=== PATIENT | male | born 1940 | race Caucasian/White ===

== ENCOUNTER 2016-11-14 10:07 | Emergency (ER) | payer MEDICARE ==
[~2016-11-14] VITALS: Ht 175.3 cm; Wt 57.0 kg
[2016-11-14 10:43] LABS: HEMOGLOBIN 12.9 g/dl (14.0-18.0); IMMATURE GRANULOCYTES 0.9 % (0.0-1.0); MEAN CELL VOLUME 95.1 fL CALC (80.0-100.0); MEAN CORPUSCULAR HGB 31.5 pG CALC (26.0-32.0); MEAN CORPUSCULAR HGB CONC 33.1 g/L CALC (32.0-36.0); NEUT# 7.18 thou/uL (1.82-7.42); RED BLOOD COUNT 4.1 mill/uL (4.70-6.10); RED CELL DISTRI WIDTH 13.6 % (11.5-15.5)
[2016-11-14 10:52] LABS: ALBUMIN 3.8 g/dL (3.2-5.0); BILIRUBIN, TOTAL 1.7 mg/dL (0.0-1.4); CALCIUM 9.5 mg/dL (8.4-10.2); CREATININE 1.6 mg/dL (0.7-1.3); POTASSIUM 4.4 mmol/l (3.5-5.1); TOTAL PROTEIN 8.3 g/dL (6.3-8.2)
[2016-11-14 12:37] LABS: URINE BLOOD DIPSTICK LARGE (NEGATIVE); URINE CLARITY SLIGHT CLOUDY; URINE COLOR YELLOW; URINE GLUCOSE - DIPSTICK NEGATIVE (NEGATIVE); URINE KETONE NEGATIVE (NEGATIVE); URINE LEUK ESTERASE NEGATIVE (NEGATIVE); URINE NITRITE - DIPSTICK NEGATIVE (Negative); URINE PH 5.5 (4.5-8.0); URINE PROTEIN - DIPSTICK 100 mg/dL (NEG-TRACE); URINE SPECIFIC GRAVITY 1.025; URINE UROBILINOGEN - DIPSTICK 0.2 E.U./dL (0.2)
[2016-11-14 12:42] LABS: URINE BILIRUBIN - DIPSTICK NEGATIVE (NEGATIVE)
[2016-11-14 12:44] LABS: URINE MUCUS MODERATE hpf (NONE-FEW); URINE RBC TNTC RBC/hpf (0-5); URINE SQUAMOUS EPITHELIAL CELL FEW EPI/hpf (0-FEW)
[2016-11-14 12:46] VITALS: BP 88/59
== END 2016-11-14 12:46 | disposition short-term general hospital (02) ==
LOC: ED 10:07
PROVIDERS: Emergency Medicine
PROC: 0T9B70Z Drainage of Bladder with Drainage Device, Via Natural or Artificial Opening (ICD-10-PCS; principal; 2016-11-14)
PROC: 0BH17EZ Insertion of Endotracheal Airway into Trachea, Via Natural or Artificial Opening (ICD-10-PCS; 2016-11-14)
DX: I26.09 Other pulmonary embolism with acute cor pulmonale (principal); R06.02 Shortness of breath; E78.5 Hyperlipidemia, unspecified; R94.31 Abnormal electrocardiogram [ECG] [EKG]; R09.02 Hypoxemia
CPT/HCPCS: J2060; J2997; Q9967

== ENCOUNTER 2016-12-14 16:09 | Emergency (ER) | payer MEDICARE ==
[~2016-12-14] VITALS: Ht 170.2 cm; Wt 51.8 kg
[2016-12-14] MEDS ORDERED: WARFARIN2 MG PO (16:25)
[2016-12-14] MEDS ORDERED: LISINOPRIL20 MG PO (16:25)
[2016-12-14] MEDS ORDERED: CETIRIZINE10 MG PO (16:25)
[2016-12-14] MEDS ORDERED: FLONASE AL50 MCG/AC1 NAB (16:26)
[2016-12-14] MEDS ORDERED: PRAVASTATIN20 MG PO (16:26)
[2016-12-14 17:02] LABS: HEMATOCRIT 32.8 % (39.0-50.0); HEMOGLOBIN 10.9 g/dl (14.0-18.0); IMMATURE GRANULOCYTES 0.2 % (0.0-1.0); MEAN CELL VOLUME 96.8 fL CALC (80.0-100.0); MEAN CORPUSCULAR HGB 32.2 pG CALC (26.0-32.0); MEAN CORPUSCULAR HGB CONC 33.2 g/L CALC (32.0-36.0); NEUT# 5.14 thou/uL (1.82-7.42); RED BLOOD COUNT 3.39 mill/uL (4.70-6.10); RED CELL DISTRI WIDTH 17.4 % (11.5-15.5)
[2016-12-14 17:07] LABS: INTERNATIONAL NORMALIZED RATIO 1.1 RATIO (0.7-1.3); PROTHROMBIN TIME 12.3 SECONDS (9.0-12.5)
[2016-12-14 17:13] LABS: ALBUMIN 4.3 g/dL (3.2-5.0); ALKALINE PHOSPHATASE 71 u/l (38-126); ANION GAP 16 (6-22 (CALC)); BILIRUBIN, TOTAL 0.9 mg/dL (0.0-1.4); BUN 15 mg/dL (8-23); BUN/CREATININE RATIO 16 (12-20 (CALC)); CALCIUM 9.4 mg/dL (8.4-10.2); CARBON DIOXIDE 24 mmol/l (22-30); CHLORIDE 97 mmol/l (95-108); CREATININE 0.9 mg/dL (0.7-1.3); GFR > 60 ML/MIN (>=60 (CALC)); GFR FOR AFR.AMER. > 60 ML/MIN (>=60 (CALC)); GLUCOSE 91 mg/dL (82-115); POTASSIUM 4.8 mmol/l (3.5-5.1); SGOT/AST 41 u/l (19-48); SGPT/ALT 29 u/l (11-66); SODIUM 132 mmol/l (137-146); TOTAL PROTEIN 8.4 g/dL (6.3-8.2)
[2016-12-14] MEDS ORDERED: WARFARIN5 MG PO (17:32)
[2016-12-14 17:50] LABS: URINE BILIRUBIN - DIPSTICK NEGATIVE (NEGATIVE); URINE BLOOD DIPSTICK NEGATIVE (NEGATIVE); URINE CLARITY CLEAR; URINE COLOR YELLOW; URINE GLUCOSE - DIPSTICK NEGATIVE (NEGATIVE); URINE KETONE NEGATIVE (NEGATIVE); URINE LEUK ESTERASE NEGATIVE (Negative); URINE NITRITE - DIPSTICK NEGATIVE (Negative); URINE PROTEIN - DIPSTICK NEGATIVE (NEG-TRACE); URINE SPECIFIC GRAVITY 1.015; URINE UROBILINOGEN - DIPSTICK 0.2 E.U./dL (0.2)
[2016-12-14 18:44] VITALS: BP 149/74
== END 2016-12-14 19:01 | disposition home or self-care (01) ==
LOC: ED 16:09
PROVIDERS: Emergency Medicine
DX: M79.604 Pain in right leg (principal); M79.89 Other specified soft tissue disorders; E78.5 Hyperlipidemia, unspecified; Z86.711 Personal history of pulmonary embolism; Z86.718 Personal history of other venous thrombosis and embolism; Z79.01 Long term (current) use of anticoagulants

== ENCOUNTER 2018-08-30 12:53 | Emergency (ER) | payer MEDICARE ==
[~2018-08-30] VITALS: Ht 170.2 cm; Wt 50.0 kg
[~2018-08-30 12:53] MED LIST: CETIRIZINE10 MG PO; FLONASE AL50 MCG/AC1 NAB; LISINOPRIL20 MG PO; PRAVASTATIN20 MG PO; WARFARIN2 MG PO; WARFARIN5 MG PO
[2018-08-30] MEDS ORDERED: XARELTO10 MG PO (13:02)
[2018-08-30] MEDS ORDERED: AUGMENTIN875TAB PO (14:54)
[2018-08-30 14:56] VITALS: BP 145/68
== END 2018-08-30 15:00 | disposition home or self-care (01) ==
LOC: ED 12:53
DX: S80.871A Other superficial bite, right lower leg, initial encounter (principal); W54.0XXA Bitten by dog, initial encounter; Y93.01 Activity, walking, marching and hiking; Y92.414 Local residential or business street as the place of occurrence of the external cause

== ENCOUNTER 2021-02-19 14:59 | Inpatient (IN) | payer MEDICARE ==
[~2021-02-19] VITALS: Ht 170.2 cm; Wt 52.0 kg
[~2021-02-19 14:59] MED LIST changes: +AUGMENTIN875TAB PO; +XARELTO10 MG PO
--- NOTE | 2021-02-19 15:35 | NUR ---
LWOBS FROM WAITING ROOM WITHOUT BEING SEEN OR SPEAKING TO ANY STAFF MEMBER UNABLE TO ATTEMPT TO TALK WITH PT REGARDING STAYING FOR CARE.
[2021-02-19 18:19] LABS: HEMATOCRIT 31.4 % (39.0-50.0); HEMOGLOBIN 10.6 g/dl (14.0-18.0); IMMATURE GRANULOCYTES 0.8 % (0.0-5.0); MEAN CELL VOLUME 98.4 fL CALC (80.0-100.0); MEAN CORPUSCULAR HGB 33.2 pG CALC (26.0-32.0); MEAN CORPUSCULAR HGB CONC 33.8 g/dL CAL (32.0-36.0); NEUT# 12.95 thou/uL (1.82-7.42); RED BLOOD COUNT 3.19 mill/uL (4.70-6.10); RED CELL DISTRI WIDTH 12.9 % (11.5-15.5)
[2021-02-19 18:25] LABS: ALBUMIN 4.1 g/dL (3.2-5.0); BILIRUBIN, TOTAL 1.7 mg/dL (0.0-1.4); CREATININE 2.3 mg/dL (0.7-1.3); MAGNESIUM 1.7 mg/dL (1.6-2.3); POTASSIUM 5.3 mmol/l (3.5-5.1); TOTAL PROTEIN 7.7 g/dL (6.3-8.2)
--- NOTE | 2021-02-19 19:40 | NUR ---
REPORT TO NASIMA RAE
[2021-02-19 19:45] VITALS: BP 129/63
--- NOTE | 2021-02-19 20:10 | NUR ---
PT RESTING IN BED. NO DISTRESS. ORIENTED TO PERSON AND PLACE. STATES MONTH SEPTEMBER AND YEAR 1959. STATES PRESIDENT IS EMILYKINGSLEY. VSS.
[2021-02-19 20:45] VITALS: BP 131/63
[2021-02-19 21:45] VITALS: BP 124/65
--- NOTE | 2021-02-19 22:00 | NUR ---
PT AMBULATE TO BR WITHOUT DIFFICULTY. FORMED BM NOTED.
--- NOTE | 2021-02-19 23:17 | NUR ---
PATIENT AGREES WITH PLAN FOR ADMIT
[2021-02-19 23:40] VITALS: BP 133/73
--- NOTE | 2021-02-19 23:40 | NUR ---
PT ARRIVED TO MED SURG UNIT VIA WC ACCOMPANIED BY ED NURSE. PT APPEARS TO BE STABLE AT THIS TIME. SELF AMBULATED WITH STANDBY ASSISTANCE. PT LOC TO SELF AND LOCATION ONLY. ORIENTED TO ROOM, CALL LIGHT, TV, BED. V/S ASSESSED AND PT ORIENTED TO FALL PRECAUTIONS AND AGREED TO CALL IF HE NEEDS TO AMBULATE. BED ALARM HAS BEEN PLACED ON FOR PRECAUTIONARY MEASURES.
--- NOTE | 2021-02-19 23:45 | NUR ---
PATIENT TRANSPORTED TO FLOOR VIA WHEELCHAIR BY THIS RN
--- NOTE | 2021-02-20 00:15 | NUR ---
ASSESSMENT HAS BEEN COMPLETED AND IVF ADMINISTERED TO SITE IN RAC/SITE APPEARS HEALTHY. PT APPEARS PLEASANTLY CONFUSED AT THIS TIME. HE IS ABLE TO TELL ME NAME, , THAT HE IS IN THE HOSPITAL. WHEN ASKED WHAT BROUGHT HIM TO THE HOSPITAL AND WHAT HAPPENED TODAY, HE REPLIED "I HAD TOO BECAUSE MY LEGS HAVE JUST NOT BEEN WORKING REAL GOOD AND IT'S JUST GETTIN WORSE AND WORSE." ADMISSION QUESTIONS WERE ATTEMPTED AND PT RESPONDED TO MEDICAL HISTORY QUESTIONS WITH PAST CAREER EXPERIENCES, HE WAS UNABLE TO ANSWER APPROPRIATELY. DENIES AND DISTRESSES/PAIN/N/V AND REPORTS THAT HE HAD BM JUST PRIOR TO COMING TO MED SURG UNIT. I PROVIDED COFFEE AND HE DENIED ANY OTHER DRINK OR SNACK. ICEWATER AT BEDSIDE. I ORIENTED HIM TO THE BED AND CALL LIGHT REINFORCEMENT. BED ALARM IS ON FOR SAFETY PRECAUTIONS.
[2021-02-20 00:47] LABS: PROTHROMBIN TIME 10.8 SECONDS (9.0-12.5)
--- NOTE | 2021-02-20 02:00 | NUR ---
PT WALKED OUT INTO HALLWAY ASKING FOR THE RESTROOM. WE REORIENTED PT TO HIS ROOM/RESTROOM LOCATION ASSISTING HIM STANDBY ASSISTANCE ONLY. BED ALARM DID NOT SOUND, BED HAD FAULTY ALARM SETTING, EXCHANGED AT THIS TIME AND CONFIRMED BED ALARM IS WORKING. PT DENIED ANY OTHER NEEDS OF ASSISTANCE, LEFT IN BED W/ALARM SET.
[2021-02-20 03:47] VITALS: BP 117/74
[2021-02-20 05:40] LABS: HEMATOCRIT 29.2 % (39.0-50.0); HEMOGLOBIN 9.8 g/dl (14.0-18.0); MEAN CELL VOLUME 99.3 fL CALC (80.0-100.0); MEAN CORPUSCULAR HGB 33.3 pG CALC (26.0-32.0); MEAN CORPUSCULAR HGB CONC 33.6 g/dL CAL (32.0-36.0); RED BLOOD COUNT 2.94 mill/uL (4.70-6.10); RED CELL DISTRI WIDTH 12.9 % (11.5-15.5)
[2021-02-20 05:55] LABS: POTASSIUM 4.7 mmol/l (3.5-5.1)
--- NOTE | 2021-02-20 06:05 | NUR ---
PT IS SLEEPING, NO S/O DISTRESS NOTED. CALL LIGHT AT BEDSIDE. BED ALARM IS ON.
--- NOTE | 2021-02-20 07:00 | NUR ---
SHIFT REPORT, AWAKE AND ALERT, ORIENTED TO PERSON ONLY, DENIES PAIN, IVF INFUSING, BED ALARM ON AND PT JUST GETTING OUT OF BED TO BR, GAIT UNSTEADY, REMINDED TO USE CALL GUEVARA.
--- NOTE | 2021-02-20 07:00 | NUR ---
SHIFT REPORT, PT AWAKE AND ALERT TO SELF AND PERSON, GAVE CORRECT INFO FOR , PLEASANTLY CONFUSED, DENIES DISCOMFORT, IVF INFUSING, TELE MONITOR IN PLACE, CALL GUEVARA IN REACH AND BED LOCKED IN LOWEST POSITION WITH ACTIVATED BED ALARM.
[2021-02-20 08:05] VITALS: BP 138/73
[2021-02-20 11:49] LABS: URINE BILIRUBIN - DIPSTICK NEGATIVE (NEGATIVE); URINE BLOOD DIPSTICK TRACE-LYSED (NEGATIVE); URINE CLARITY CLEAR; URINE COLOR YELLOW; URINE GLUCOSE - DIPSTICK NEGATIVE (NEGATIVE); URINE KETONE NEGATIVE (NEGATIVE); URINE LEUK ESTERASE NEGATIVE (Negative); URINE NITRITE - DIPSTICK NEGATIVE (Negative); URINE PH 5.5 (4.5-8.0); URINE PROTEIN - DIPSTICK NEGATIVE (NEG-TRACE); URINE UROBILINOGEN - DIPSTICK 0.2 E.U./dL (0.2)
[2021-02-20 11:56] VITALS: BP 147/75
--- NOTE | 2021-02-20 12:00 | NUR ---
EMACIATED, EATS RAVENOUSLY BUT EXPRESSES APPRECIATION FOR MEALS, FORGETS TO CALL FOR ASSISTANCE TO BR BUT STAFF IS ALERTED BY ALARM, WILL CONTINUE TO MONITOR
--- NOTE | 2021-02-20 13:21 | NUR ---
NO MED REC COMPLETED. CALLED PT PREFERRED PHARMACY [facility], PT HAS NOT FILLED ANYTHING WITH THEM RECENTLY. NEXT OF KIN PHONE NUMBER IS OUT OF SERVICE. MARKED MED REC UNOBTAINABLE, CALLED [facility] LOOKING FOR PTS NURSE JUN, WILL ASK HER TO SPEAK WITH PT TO FIND OUT WHO TO CONTACT TO OBTAIN MED LIST
--- NOTE | 2021-02-20 16:00 | NUR ---
PT REPORTED HE IS BUYING HOUSE FROM SOMEONE WHO GAVE ONE COHN IN THE BEGINNING THEN THE COHN SIGNIFICANTLY WENT UP TO THE POINT HE CAN HARDLY AFFORD THE WEEKLY PAYMENTS. HE DOES APPEAR TO HAVE SOME MEMORY IMPAIRMENT BUT HIS REPORT NEEDS TO BE INVESTIGATED, CM WILL BE NOTIFIED.
[2021-02-20] MEDS ORDERED: NORVASC5 M1 PO (16:32)
[2021-02-20] MEDS ORDERED: ELIQUIS2.5 MG PO (16:32)
--- NOTE | 2021-02-20 17:57 | NUR ---
ED JUST REPORTED 20SECONDS V-TACH, ON OBSERVATION PT HAD GOTTEN OOB FOR BLADDER ELIMINATION THEN SAT ON EDGE OF BED FOR MEAL, NO REPORTS OF DISCOMFORT, VS ; BP = 136/68, HR = 76, O2 = 99%ON RA. WILL CONTINUE TO MONITOR. KYLER (NUZHAT) NOTIFIED, SAID WILL GIVE 2GM MAGNESIUM AND MONITOR OVERNIGHT. TRAVELING PLANT OPERATOR REPORTS PT IS BACK IN SINUS RHYTHM WITH RATE 78.
[2021-02-20 19:26] VITALS: BP 132/69
--- NOTE | 2021-02-20 20:23 | NUR ---
PT MEDICATED W/MAGNESIUM PROVIDED BY HEALTH PROMOTER AT THIS TIME. PT AWAKE AND TALKATIVE. PLEASANTLY CONFUSED OF CIRCUMSTANCES, BUT AWARE HE IS IN THE HOSPITAL AND LOC TO SELF.
[2021-02-20 23:00] VITALS: BP 123/64
--- NOTE | 2021-02-20 23:05 | NUR ---
V/S ASSESSED STABLE AT THIS TIME. AND PT MEDICATED WITH HEP SHOT. TOLERATED WELL. I ENCOURAGED SNACK/FOOD/DRINK, REFUSED.
--- NOTE | 2021-02-21 01:51 | NUR ---
PT IVF REPLENISHED AT THIS TIME. ASSISTED HIM TO BEDSIDE TO USE URINAL. 200CC OF DARK YELLOW URINE OUTPUT AT THIS TIME.
[2021-02-21 04:00] VITALS: BP 128/72
[2021-02-21 05:12] LABS: HEMATOCRIT 29.5 % (39.0-50.0); HEMOGLOBIN 9.9 g/dl (14.0-18.0); MEAN CORPUSCULAR HGB 33.6 pG CALC (26.0-32.0); MEAN CORPUSCULAR HGB CONC 33.6 g/dL CAL (32.0-36.0); RED BLOOD COUNT 2.95 mill/uL (4.70-6.10); RED CELL DISTRI WIDTH 12.8 % (11.5-15.5)
[2021-02-21 05:25] LABS: ANION GAP 13 (6-22 (CALC)); BUN 30 mg/dL (8-23); BUN/CREATININE RATIO 26 (12-20 (CALC)); CARBON DIOXIDE 23 mmol/l (22-30); CHLORIDE 99 mmol/l (95-108); CREATININE 1.1 mg/dL (0.7-1.3); GFR > 60 ML/MIN (>=60 (CALC)); GFR FOR AFR.AMER. > 60 ML/MIN (>=60 (CALC)); POTASSIUM 4.1 mmol/l (3.5-5.1); SODIUM 131 mmol/l (137-146)
[2021-02-21 05:29] LABS: MAGNESIUM 2.3 mg/dL (1.6-2.3)
--- NOTE | 2021-02-21 05:35 | NUR ---
PT IS SLEEPING, NO S/O DISTRESSES AT THIS TIME. BED ALARM IS ON.
--- NOTE | 2021-02-21 06:22 | NUR ---
PT MEDICATED ORDERS PROVIDE. HE MENTIONED THAT HE THINKS "THE PAIN IN MY LEG BETWEEN HIP AND KNEES FEELS BETTER." THIS IS THE FIRST THE PT HAS MENTIONED THIS PAIN TO TOPSTITCHER ZIGZAG. HE DENIED ANY MEDICATION FOR THIS. I OBSERVED A REDDENED CIRCULAR SPOT ON HIS UPPER RIGHT THIGH NEAR THE GROIN AREA/CLOSED RED AREA. STATES "I JUST FOUND IT."
--- NOTE | 2021-02-21 06:45 | NUR ---
REPORT FROM TERRELL RAE. ASSUMED PT CARE.
[2021-02-21 07:17] VITALS: BP 134/71
--- NOTE | 2021-02-21 07:17 | NUR ---
PT NOTED RESTING IN BED. NO APPARENT DISTRESS NOTED. IV SITE APPEARS HEALTHY. PT ALERT AND ORIENTED X2. PT DENIES ANY PAIN OR DISCOMFORT. PRE PRESS OPERATOR IN PLACE. DISCUSSED POC. PT VERBALIZED UNDERSTANDING. NO CURRENT WANTS OR NEEDS. CALL LIGHT WITHIN REACH AND BED ALARM ON FOR SAFETY. WILL CONTINUE TO MONITOR.
[2021-02-21 11:00] VITALS: BP 146/64
--- NOTE | 2021-02-21 11:07 | NUR ---
PHYSICIAN AT BEDSIDE TO DISCUSS POC.
--- NOTE | 2021-02-21 13:06 | NUR ---
Physical Therapy Visit Patient seen and treated today. Patient identified by full name date of . Physical Therapy Management: 1. Supine to sit an sit to supine x 2 rounds. 2. Sitting tolerance x 5 minutes. 3. Sit to stand and stand to sit. 4. Standing balance/tolerance x 3-5 minutes. 5. Weight-shifting exercises x 10 repetitions. 6. Marching in place x repetitions. Patient was able to perform all exercies with minimal fatigue. Minimal unsteadiness observed while patent is attempting to sit and stand and maintaining standing position.
[2021-02-21 14:55] VITALS: BP 143/66
--- NOTE | 2021-02-21 16:41 | NUR ---
CAREGIVER YVAN AT BEDSIDE. PT GIVES LEAD MATERIAL HANDLER PERMISSION TO GIVE YVAN INFORMATION AT THIS TIME AND UPDATE ON PT CONDITION.
[2021-02-21 18:47] VITALS: BP 115/66
--- NOTE | 2021-02-21 19:15 | NUR ---
IVF SOUNDING. PT LOCX3. HE LOOKS BETTER, REPORTS FEELING BETTER. DENIES ANY NEEDS AT THIS TIME. ASSESSMENT COMPLETED. WILL FOLLOW-UP WITH MEDICATIONS ORDERED. PT ENCOUARGED TO USE CALL LIGHT NEEDED AND TO GET UP. BED ALARM IS ON.
--- NOTE | 2021-02-21 20:06 | NUR ---
IVF REPLENISHED AT THIS TIME. PT WAS SLEEPING, AWOKE TO MY SCANNING. QUICK WITH A SMILE THOUGH, NO S/O DISTRESS. TV ON LOW.
[2021-02-21 23:42] VITALS: BP 120/64
[2021-02-22] VITALS (7 sets, daily range): BP systolic 108–135; BP diastolic 59–73
--- NOTE | 2021-02-22 00:45 | NUR ---
PT IN BED WITH EYES CLOSED. LIGHTS AND TV ARE OFF. BED ALARM ON. RESP EVEN NON-LABORED.
--- NOTE | 2021-02-22 04:54 | NUR ---
PT MEDICATED ORDERS PROVIDE. PT ATE THE SNACK I PROVIDED EARLIER. V/S ASSESSED. PT DENIES ANY OTHER NEEDS.
[2021-02-22 05:27] LABS: HEMATOCRIT 29.6 % (39.0-50.0); HEMOGLOBIN 9.8 g/dl (14.0-18.0); MEAN CELL VOLUME 101.4 fL CALC (80.0-100.0); MEAN CORPUSCULAR HGB 33.6 pG CALC (26.0-32.0); MEAN CORPUSCULAR HGB CONC 33.1 g/dL CAL (32.0-36.0); RED BLOOD COUNT 2.92 mill/uL (4.70-6.10)
[2021-02-22 05:56] LABS: ANION GAP 11 (6-22 (CALC)); BUN 21 mg/dL (8-23); BUN/CREATININE RATIO 22 (12-20 (CALC)); CARBON DIOXIDE 24 mmol/l (22-30); CHLORIDE 100 mmol/l (95-108); GFR > 60 ML/MIN (>=60 (CALC)); GFR FOR AFR.AMER. > 60 ML/MIN (>=60 (CALC)); POTASSIUM 4.5 mmol/l (3.5-5.1); SODIUM 131 mmol/l (137-146)
--- NOTE | 2021-02-22 08:00 | NUR ---
PT RESTING IN THE BED, HE IS ALERT TO SELF, REORIENTED TO PLACE AND TIME. IV INFUSING. PT IS VOIDING IN THE URINAL. ENCOURAGED TO EAT. C/O PAIN TO THE HEAL, MED PER ORDER. REPOSITIONED FOR COMOFRT, SIDE RAILS UP CALL LIGHT IN REACH BED LOCKED IN LOW POSITION, WILL CONTINUE TO MONIOTR THE PATIENT.
--- NOTE | 2021-02-22 10:00 | NUR ---
OUT OF THE BED TO THE BEDSIDE CHAIR PER ORDER. SLIGHTLY UNSTEADY ON FEET. CALL LIGHT IN RECH, NO DISTRESS NOTED WILL CONTINUE TO MONIOTR THE PATIENT.
--- NOTE | 2021-02-22 12:00 | NUR ---
SITTING UP IN THE BED SIDE CHAIR EATING LUNCH. DENIES PAIN AT THIS TIME. CALL LIGHT IN REACH, WILL CONTINUE TO MONIOTR THE PATIENT.
--- NOTE | 2021-02-22 13:07 | NUR ---
Patient did B LE seated AROM exercises for 10 reps x 2 sets doing knee extension, hip flexion, hip adduction, hip abduction, ankle ROM, and hamstring curls with constant verbal and tactile cuing to help decrease trick movements and fall risks. Patient did log rolling bed mobility and sit to stand push off transfers for 2 to 3 reps with occasional verbal and tactile cuing to help decrease trick movements and fall risks. Patient also walked around the room with CGA x 1 covering 8 to 10 feet to and from the chair and bed with verbal and tactile cuing in preparation for lunch.
--- NOTE | 2021-02-22 14:07 | NUR ---
PT SITTING UP IN THE BEDSIDE CHAIR. NO DISTRESS NOTED AT THIS TIME.
--- NOTE | 2021-02-22 16:48 | NUR ---
BACK INTO BED, DENIES ANY PAIN OR DISCOMFORT AT THIS TIME. CALL LIGHT IN REACH, WILL CONTINUE TO MONIOTR THE PATIENT.
--- NOTE | 2021-02-22 21:00 | NUR ---
PATIENT IS AWAKE, ALERT AND PLEASANT. DENIES PAIN. ON TELEMETRY. ASSESSMENT COMPLETED AND CHARTED. BED IN LOW POSITION. CALL LIGHT WITHIN REACH.
--- NOTE | 2021-02-23 03:21 | NUR ---
RESTING WITH EYES CLOSED. NO ACUTE DISTRESS NOTED. FALL PRECAUTIONS MAINTAINED.
[2021-02-23 04:00] VITALS: BP 106/63
--- NOTE | 2021-02-23 05:04 | NUR ---
NO CHANGES NOTED.
[2021-02-23 05:19] LABS: HEMATOCRIT 29.2 % (39.0-50.0); HEMOGLOBIN 9.7 g/dl (14.0-18.0); MEAN CELL VOLUME 101.4 fL CALC (80.0-100.0); MEAN CORPUSCULAR HGB 33.7 pG CALC (26.0-32.0); MEAN CORPUSCULAR HGB CONC 33.2 g/dL CAL (32.0-36.0); RED BLOOD COUNT 2.88 mill/uL (4.70-6.10); RED CELL DISTRI WIDTH 13.1 % (11.5-15.5)
[2021-02-23 05:31] LABS: ANION GAP 11 (6-22 (CALC)); BUN 15 mg/dL (8-23); BUN/CREATININE RATIO 18 (12-20 (CALC)); CARBON DIOXIDE 25 mmol/l (22-30); CHLORIDE 99 mmol/l (95-108); CREATININE 0.9 mg/dL (0.7-1.3); GFR > 60 ML/MIN (>=60 (CALC)); GFR FOR AFR.AMER. > 60 ML/MIN (>=60 (CALC)); POTASSIUM 4.5 mmol/l (3.5-5.1); SODIUM 130 mmol/l (137-146)
--- NOTE | 2021-02-23 07:10 | NUR ---
REPORT RECEIVED FROM FROM BUTCH MCHUGH
[2021-02-23 08:00] VITALS: BP 118/60
--- NOTE | 2021-02-23 08:00 | NUR ---
PT RESTING IN SEMI FOWLERS POSITION,A&O TO PERSON AND PLACE;VS OBTAINED AND ASSESSMENT COMPLETED;PT DENIES ANY CURRENT PAIN OR DISCOMFORTS,PAIN SCALE AND REPORTING EDUCATED;RESPIRATIONS EVEN AND UNLABORED ON RA,CLEAR LUNG SOUNDS;ABDOMEN SOFT ON PALPATION AND ACTIVE IN ALL 4 QUADRANTS;WEAK PEDAL PULSES;+2 BLE EDEMA NOTED,ENCOURAGED ELEVATION OF BLE;SKIN INTACT;TELE MONITORING IN PLACE;#20G TO RAC INFUSING NS @ 20ML/HR,SITE APPEARS HEALTHY;PT DENIES ANY ADDITIONAL NEEDS AND IS ENCOURAGED TO CALL FOR ASSISTANCE IF NEEDED;FALL PRECAUTIONS IN PLACE WITH BED IN THE LOWEST POSITION AND BED ALARM ON FOR SAFETY;CALL LIGHT IN REACH;WILL CONTINUE TO MONITOR
--- NOTE | 2021-02-23 09:41 | NUR ---
AT BEDSIDE DISCUSSING POC WITH PT.
--- NOTE | 2021-02-23 10:03 | NUR ---
PT MEDICATED WITH PRN MOM WITH PRUNE JUICE TO ASSIST IN BOWEL CARE.
[2021-02-23 10:54] VITALS: BP 111/58
--- NOTE | 2021-02-23 11:30 | NUR ---
PT OOB RESTING IN RECLINER;RESPIRATIONS EVEN AND UNLABORED ON RA;PT DENIES ANY CURRENT PAIN OR NEEDS;IV SITE PATENT INFUSING NS WITH EASE PER ORDER;TELE MONITORING IN PLACE;ALL SAFETY PRECAUTIONS REMAIN IN PLACE WITH BED IN THE LOWEST POSITION AND CALL LIGHT IN REACH;WILL CONTINUE TO MONITOR
[2021-02-23 15:04] VITALS: BP 129/74
--- NOTE | 2021-02-23 15:40 | NUR ---
PT APPEARS TO BE SLEEPING IN SEMI FOWLERS POSITION;RESPIRATIONS EVEN AND UNLABORED ON RA;NO S/S OF DISTRESS NOTED;TELE MONITORING IN PLACE;IV SITE PATENT INFUSING NS WITH EASE PER ORDER;ALL SAFETY PRECAUTIONS REMAIN IN PLACE WITH BED IN THE LOWEST POSITION AND BED ALARM ON FOR SAFETY;CALL LIGHT IN REACH;WILL CONTINUE TO MONITOR
[2021-02-23 19:00] VITALS: BP 123/71
--- NOTE | 2021-02-23 20:29 | NUR ---
PATIENT AWAKE ALERT WITH CONFUSION. PLEASANT. DENIES PAIN. ON TELEMETRY. NO ACUTE DISTRESS NOTED. ASSESSMENT COMPLETE AND CHARTED. FALL PRECAUTIONS IN PLACE. BED IN LOW POSITION. CALL LIGHT WITHIN REACH.
[2021-02-23 23:30] VITALS: BP 109/55
--- NOTE | 2021-02-24 00:34 | NUR ---
RESTING WITH EYES CLOSED. NO ACUTE DISTRESS OBSERVED. BED IN LOW POSITION. CALL LIGHT WITHIN REACH.
[2021-02-24 03:30] VITALS: BP 132/73
[2021-02-24 05:24] LABS: HEMATOCRIT 29.2 % (39.0-50.0); HEMOGLOBIN 9.7 g/dl (14.0-18.0); MEAN CORPUSCULAR HGB 33.6 pG CALC (26.0-32.0); MEAN CORPUSCULAR HGB CONC 33.2 g/dL CAL (32.0-36.0); RED BLOOD COUNT 2.89 mill/uL (4.70-6.10); RED CELL DISTRI WIDTH 13.3 % (11.5-15.5)
[2021-02-24 05:35] LABS: ANION GAP 10 (6-22 (CALC)); BUN 11 mg/dL (8-23); BUN/CREATININE RATIO 14 (12-20 (CALC)); CARBON DIOXIDE 26 mmol/l (22-30); CHLORIDE 98 mmol/l (95-108); CREATININE 0.8 mg/dL (0.7-1.3); GFR > 60 ML/MIN (>=60 (CALC)); GFR FOR AFR.AMER. > 60 ML/MIN (>=60 (CALC)); POTASSIUM 4.5 mmol/l (3.5-5.1); SODIUM 129 mmol/l (137-146)
[2021-02-24 08:00] VITALS: BP 106/58
--- NOTE | 2021-02-24 08:00 | NUR ---
RESTING IN THE BED ,ALERT, REORIENTED TO PLACE AND TIME, AND SITUATION. IV INFUSING, PT IS VOIDING. HEELS ELEVATED ON PILLOW. DENIES PAIN AT THIS TIME. ENCOURAGED TO SIT UP IN THE BEDSIDE CHAIR. REPOSITIOEND FOR COMOFRT, SIDE RAILS UP CALL LIGHT INR EACH BED LOCKED IN LOW POSITION, WILL CONTINUE TO MONITOR.
--- NOTE | 2021-02-24 10:00 | NUR ---
REQUEST PT SIT IN THE BEDSIDE CHAIR. PT STATED HE WILL GET UP TO THE CHAIR AFTER LUNCH.
[2021-02-24 10:49] VITALS: BP 113/64
--- NOTE | 2021-02-24 12:00 | NUR ---
PT RESTING, NO DISTRESS NOTED AT THIS TIME. WILL CONTINUE TO MONIOTR THE PATIENT.
[2021-02-24 15:20] VITALS: BP 119/63
--- NOTE | 2021-02-24 15:21 | NUR ---
OUT OF THE BED TO THE BEDSIDE CHAIR WITH ASST. ZACHARY WELL. CALL LIGHT IN REACH.
--- NOTE | 2021-02-24 16:00 | NUR ---
SITTING UP IN THE CHAIR LEGS ELEVATED. TEDS ON. NO DISTRESS NOTED AT THIS TIME. CALL LIGHT IN REACH.
--- NOTE | 2021-02-24 16:39 | NUR ---
PT note The patient is seen for gait training as before. He is able to ambulate about 60 feet with FWW and Min assist of 1 on a level surface but did require mod assist for 1 LOB backwards upon initial standing. Am Pac is 12 indicating he would do well in ECF Our plan is to continue gait training and balance activities as tolerated
[2021-02-24 19:00] VITALS: BP 136/69
--- NOTE | 2021-02-24 19:00 | NUR ---
REPORT RECIVED FROM Dell CALLAHAN, PATIENT CARE ASSUMED AT THIS TIME.
--- NOTE | 2021-02-24 21:14 | NUR ---
PATIENT SITTING COMFORTABLY IN BED WATCHING TV. ASSEMENT COMPLETED AT THIS TIME. ALERT AND ORIENTED X1. REORIENTED TO ROOM AND TO TREATMENT PLAN FOR THE NIGHT.#22 GUAGGE SALINE LOCK INFUSING NORMAL SALINE AT 20ML/HR IN THE RIGHT UPPER ARM. CLEAR BILATERAL LUNG SOUNDS, NORMAL HEART RATE. SKIN INTACT, REDNESS NOTED ON BILATERAL HEELS, SKIN PREP AND HEEL GUARDS APPLIED, FEEL ELEVATED ON PILLOW. PATIENT DENIES ANY PAIN AT THIS TIME. ORIENTED TO USE OF CALL LIGHT AND ASKED TO CALL IF PATIENT HAS ANY NEEDS.
--- NOTE | 2021-02-24 21:14 | NUR ---
PATIENT MEDICATED PER EMAR, SEE EMAR.
[2021-02-24 23:15] VITALS: BP 127/65
--- NOTE | 2021-02-25 00:20 | NUR ---
PATIENT RESTING COMFORTABLY, NO APPARENT DISTRESS NOTED AT THIS TIME. WILL CON'T TO MONITOR.
[2021-02-25 03:59] VITALS: BP 133/72
--- NOTE | 2021-02-25 04:27 | NUR ---
PT SLEEPING. CALL LIGHT AND BEDSIDE TABLE WITHIN REACH
[2021-02-25 05:09] LABS: HEMATOCRIT 30.1 % (39.0-50.0); MEAN CELL VOLUME 101.3 fL CALC (80.0-100.0); MEAN CORPUSCULAR HGB 33.7 pG CALC (26.0-32.0); MEAN CORPUSCULAR HGB CONC 33.2 g/dL CAL (32.0-36.0); RED BLOOD COUNT 2.97 mill/uL (4.70-6.10); RED CELL DISTRI WIDTH 13.4 % (11.5-15.5)
[2021-02-25 05:24] LABS: ALKALINE PHOSPHATASE 60 u/l (38-126); ANION GAP 9 (6-22 (CALC)); BILIRUBIN, TOTAL 0.7 mg/dL (0.0-1.4); BUN 11 mg/dL (8-23); BUN/CREATININE RATIO 14 (12-20 (CALC)); CARBON DIOXIDE 27 mmol/l (22-30); CHLORIDE 99 mmol/l (95-108); CREATININE 0.8 mg/dL (0.7-1.3); GFR > 60 ML/MIN (>=60 (CALC)); GFR FOR AFR.AMER. > 60 ML/MIN (>=60 (CALC)); POTASSIUM 4.3 mmol/l (3.5-5.1); SGOT/AST 58 u/l (19-48); SODIUM 130 mmol/l (137-146)
[2021-02-25 05:25] LABS: ALBUMIN 2.8 g/dL (3.2-5.0); MAGNESIUM 1.6 mg/dL (1.6-2.3); TOTAL PROTEIN 5.7 g/dL (6.3-8.2)
--- NOTE | 2021-02-25 07:00 | NUR ---
SHIFT CHANGE REPORT, PT SLEEPING BUT ARUSES TO VERBAL AND TACTILE STIMULI, DENIES DISCOMFORE AND STATES HE FEELS STRONGER THAN HE DID FEW DAYS AGO, IVF INFUSING, TELE MONITOR IN PLACE, CALL GUEVARA IN REACH AND BED LOCKED IN LOWEST POSITION.
[2021-02-25 07:28] VITALS: BP 137/66
[2021-02-25 10:30] VITALS: BP 123/58
--- NOTE | 2021-02-25 11:50 | NUR ---
PT SITTING UP IN BED INFORMED HE WILL BE GOING TO REHAB FOR STRENGHTENING, STATES HE ISNT GOING TO REHAB HE HAS A FRIEND AT HOME WHO TAKES GOOD CARE OF HIM AND HE WANTS TO GO BACK HOME, CM AWARE.
[2021-02-25 15:00] VITALS: BP 114/59
--- NOTE | 2021-02-25 15:24 | NUR ---
REPORT GIVEN TO DAVID AT [facility], PT IS BEING RECEIVED BY TRANSPORTER AT THIS TIME AND TAKEN VIA W/C.
--- NOTE | 2021-02-25 15:25 | NUR ---
Discharge instructions given. Patient verbalizes understanding of same. Discharged in fair condition via Wheelchair to ACLF with *Other. All belongings sent with pt.
== END 2021-02-25 15:16 | DRG 683 ==
LOC: ED 14:59 → ED-I 17:04 → ED 17:04 → ED-I 18:47 → ED 20:00 → MS2 20:01
PROVIDERS: Emergency Medicine; Nurse Practitioner; ADMIT Hospitalist; ATTEND Internal Medicine
DX: N17.9 Acute kidney failure, unspecified (principal); E87.1 Hypo-osmolality and hyponatremia; E86.0 Dehydration; F03.90 Unspecified dementia, unspecified severity, without behavioral disturbance, psychotic disturbance, mood disturbance, and anxiety; I10 Essential (primary) hypertension; D72.829 Elevated white blood cell count, unspecified; D50.9 Iron deficiency anemia, unspecified; Z86.718 Personal history of other venous thrombosis and embolism; Z79.01 Long term (current) use of anticoagulants; Z20.822 Contact with and (suspected) exposure to COVID-19
CPT/HCPCS: G0378; J1650; J1756

== ENCOUNTER 2021-04-20 03:00 | Observation (INO) | payer MEDICARE ==
[2021-04-20] VITALS (10 sets, daily range): BP systolic 102–135; BP diastolic 53–95
[~2021-04-20] VITALS: Ht 170.2 cm; Wt 50.7 kg
[~2021-04-20 03:00] MED LIST changes: +ELIQUIS2.5 MG PO; +NORVASC5 M1 PO
--- NOTE | 2021-04-20 03:00 | NUR ---
PT TO ROOM VIA EMS FOR BEDSIDE TRIAGE, PT APPARENTLY A MISSING PERSONS FOPUND AT [place] CONFUSED AND HYPOGLYCEMIC, UNSURE OF PT'S BASELINE MENTAL STATUS, PT APPEARS DISHEVELED AND VERY THIN, CLOTHES DIRTY AND FEET WELL SOCKS. VS STABLE AFEBRILE, APD EN ROUTE PER EMS WITH FURTHER DETAILS
--- NOTE | 2021-04-20 03:30 | NUR ---
PT ACCU CHECK 46 1 AMP D50 GIVEN THEN IVF STARTED ORDERED, LABS DRAWNA AND SWABS OBTAINED, PT TOLERATED WELL. PT REMAINS CONFUSED BUT COOPERATIVE WITH CARE.
[2021-04-20 03:42] LABS: HEMATOCRIT 31.8 % (39.0-50.0); HEMOGLOBIN 10.5 g/dl (14.0-18.0); IMMATURE GRANULOCYTES 0.8 % (0.0-5.0); MEAN CELL VOLUME 100.3 fL CALC (80.0-100.0); MEAN CORPUSCULAR HGB 33.1 pG CALC (26.0-32.0); NEUT# 8.33 thou/uL (1.82-7.42); RED BLOOD COUNT 3.17 mill/uL (4.70-6.10); RED CELL DISTRI WIDTH 14.4 % (11.5-15.5)
--- NOTE | 2021-04-20 03:45 | NUR ---
PT RETURNS FROM RADIOLOGY IVF REINITIATED, CALL GUEVARA WITHIN REACH.
[2021-04-20 03:55] LABS: ALBUMIN 4.7 g/dL (3.2-5.0); BILIRUBIN, TOTAL 1.5 mg/dL (0.0-1.4); CREATININE 2.6 mg/dL (0.7-1.3); TOTAL PROTEIN 7.9 g/dL (6.3-8.2)
[2021-04-20 03:57] LABS: POTASSIUM 5.2 mmol/l (3.5-5.1)
--- NOTE | 2021-04-20 04:20 | NUR ---
PT RESTING ALERT BUT REMAINS CONFUSED, TOELRATED GATORADE W/O INCIDENT INCONTINENT ON SHEETS BUT STATED HE KNEW HE HAD TO GO BUT DIDN'T WANT TO BOTHER US, URINAL PLACED WITHIN REACH, URINE OBTAINED AND SENT TO LAB.
--- NOTE | 2021-04-20 04:59 | NUR ---
2nd LITER OF IVF INFUSING ORDERED, CALL GUEVARA WITHIN REACH.
[2021-04-20 05:06] LABS: URINE BILIRUBIN - DIPSTICK NEGATIVE (NEGATIVE); URINE BLOOD DIPSTICK MODERATE (NEGATIVE); URINE COLOR YELLOW; URINE GLUCOSE - DIPSTICK NEGATIVE (NEGATIVE); URINE KETONE 15 mg/dL (NEGATIVE); URINE PH 5.5 (4.5-8.0); URINE PROTEIN - DIPSTICK NEGATIVE (NEG-TRACE); URINE UROBILINOGEN - DIPSTICK 0.2 E.U./dL (0.2)
[2021-04-20 05:10] LABS: URINE LEUK ESTERASE NEGATIVE (NEGATIVE); URINE NITRITE - DIPSTICK NEGATIVE (Negative)
[2021-04-20 05:15] LABS: URINE BACTERIA MODERATE hpf; URINE EPITHELIAL CELLS FEW EPI/hpf (0-FEW)
[2021-04-20 05:16] LABS: URINE COARSE GRANULAR CAST FEW lpf; URINE FINE GRAN CAST FEW lpf
--- NOTE | 2021-04-20 06:00 | NUR ---
PT ARRIVES TO UNIT VIA WC ACCOMPANIED BY Felisa HARRIS RN. ADMITTED TO ICU #[id number].
--- NOTE | 2021-04-20 06:05 | NUR ---
PT STOOD AND TRANSFERRED TO WHEELCHAIR WITH MIN ASSIST, TRANSFERRED TO ICU MED SURG OVERFLOW FOR TELEMETRY, ALL BELONGINGS SENT WITH PATIENT SEE BELONGINGS RECORD. RECIEIVING NURSE AT BEDSIDE ON ARRIVAL.
--- NOTE | 2021-04-20 06:27 | NUR ---
JUICE, NUTRIGRAIN BAR, JELLO, AND MICROWAVED FROZEN BREAKFAST SANDWICH PROVIDED.
--- NOTE | 2021-04-20 06:55 | NUR ---
REPORT RECEIVED FROM BUTCH RAY
[2021-04-20] MEDS ORDERED: NORVASC5 M1 PO (07:17)
[2021-04-20] MEDS ORDERED: ELIQUIS2.5 MG PO (07:17)
--- NOTE | 2021-04-20 08:20 | NUR ---
PT RESTING IN SEMI FOWLERS POSITION,ALERT TO SELF ONLY AND PLEASANT;VS OBTAINED AND ASSESSMENT COMPLETED;PT DENIES ANY CURRENT PAIN OR DISCOMFORTS,PAIN SCALE AND REPORTING EDUCATED;RESPIRATIONS EVEN AND UNLABORED ON RA,CLEAR LUNG SOUNDS;ABDOMEN SOFT ON PALPATION AND ACTIVE IN ALL 4 QUADRANTS, UNKNOWN WHEN LAST BM WAS PER PT;WEAK PEDAL PULSES;SKIN INTACT;CARDIAC MONITORING IN PLACE;EMS #20G TO LFA INFUSING NS @ 125ML/HR,SITE APPEARS HEALTHY;ACCUCHECK 129;PT DENIES ANY ADDITIONAL NEEDS AND IS ENCOURAGED TO CALL FOR ASSISTANCE IF NEEDED;FALL PRECAUTIONS REMAIN IN PLACE WITH BED IN THE LOWEST POSITION AND BED ALARM ON FOR SAFETY;CALL LIGHT IN REACH;WILL CONTINUE TO MONITOR
--- NOTE | 2021-04-20 09:09 | NUR ---
AT BEDSIDE DISCUSSING POC WITH PT.
--- NOTE | 2021-04-20 11:30 | NUR ---
PT APPEARS TO BE SLEEPING IN SEMI FOWLERS POSITION;RESPIRATIONS EVEN AND UNLABORED ON RA;NO S/S OF DISTRESS NOTED;CARDIAC MONITORING IN PLACE;IV SITE PATENT INFUSING NS WITH EASE PER ORDER;ALL SAFETY PRECAUTIONS REMAIN IN PLACE WITH BED IN THE LOWEST POSITION AND BED ALARM ON FOR SAFETY;CALL LIGHT IN REACH;WILL CONTINUE TO MONITOR
--- NOTE | 2021-04-20 12:15 | NUR ---
LAB AT BEDSIDE
--- NOTE | 2021-04-20 12:40 | NUR ---
EMS IV SITE REMOVED WITH CATHETER INTACT DUE TO EXPIRATION, NEW #22G STARTED TO ARUN ON 1ST ATTEMPT, PT TOLERATED WELL;WILL CONTINUE TO MONITOR
--- NOTE | 2021-04-20 13:20 | NUR ---
PT OOB RESTING IN RECLINER;REESPIRATIONS EVEN AND UNLABORED ON RA;PT DENIES ANY CURRENT PAIN OR NEEDS;CARDIAC MONITORING IN PLACE;IV SITE PATENT INFUSING NS WITH EASE PER ORDER;PT ENCOURAGED TO CALL FOR ASSISTANCE IF NEEDED;FALL PRECAUTIONS IN PLACE WITH BED ALARM ON FOR SAFETY;CALL LIGHT IN REACH;WILL CONTINUE TO MONITOR
--- NOTE | 2021-04-20 15:15 | NUR ---
PT OOB RESTING IN RECLINER;RESPIRATIONS EVEN AND UNLABORED ON RA;PT DENIES ANY CURRENT PAIN OR DISCOMFORTS;CARDIAC MONITORING IN PLACE, WHEN ASLEEP PT HR CAN DROP LOW 39 FOR THIS WRITTER; AWARE OF TREND;IV SITE PATENT INFUSING LR WITH EASE;PT EDUCATED ON PLANS TO TRANSFER TO A MED/SURG ROOM AND VERBALIZES UNDERSTANDING;PT DENIES ANY ADDITIONAL NEEDS AND IS ENCOURAGED TO CALL FOR ASSISTANCE IF NEEDED;BED ALARM REMAINS ON FOR SAFETY WITH CALL LIGHT IN REACH;WILL CONTINUE TO MONITOR
--- NOTE | 2021-04-20 15:35 | NUR ---
REPORT GIVEN TO CHEVY ROY;PT TO BE TRANSFERRED TO MED/SURG ROOM 261 WITH TELE.
--- NOTE | 2021-04-20 16:38 | NUR ---
PT TRANSFERRED TO MED/SURG ROOM 261 IN STABLE CONDITION VIA WC ACCOMPANIED BY WRITTER.ALL BELONGINGS LEFT WITH PT AT THIS TIME.TRANSFER UNEVENTFUL AND CARE RELINQUISHED TO CHEVY ROY.
--- NOTE | 2021-04-20 20:00 | NUR ---
PATIENT RESTING QUIETLY. NO COMPLAINTS. DENIES PAIN. LR INFUSING AT 150ML/HR. URINAL AT BEDSIDE. PATIENT IS ALERT WITH CONFUSION. VAD PATIENT WITH DRESSING CLEAN DRY AND INTACT. RESPIRATIONS EVEN AND UNLABORED. ON TELEMETRY. HR REG. ASSESSMENT COMPLETED AND CHARTED. BED IN LOW POSITION. CALL LIGHT WITHIN REACH. BED ALARM ACTIVATED.
--- NOTE | 2021-04-20 22:35 | NUR ---
PATIENT AWAKE. VOIDED 500ML YELLOW URINE. LR COMPLETED. NS INITIATED AT 125ML/HR. NO ACUTE DISTRESS. PLEASANT MOOD. BED IN LOW POSITION. CALL LIGHT WITHIN REACH. BED ALARM ACTIVATED.
--- NOTE | 2021-04-21 00:05 | NUR ---
PATIENT RESTING QUIETLY. CALM. NO DISTRESS. BED IN LOW POSITION. CALL LIGHT WITHIN REACH. BED ALARM ACTIVATED.
[2021-04-21 01:16] VITALS: BP 113/55
[2021-04-21 04:33] VITALS: BP 121/60
--- NOTE | 2021-04-21 04:45 | NUR ---
RESTING QUIETLY. NO COMPLAINTS.
[2021-04-21 05:37] LABS: HEMATOCRIT 31.7 % (39.0-50.0); HEMOGLOBIN 10.2 g/dl (14.0-18.0); MEAN CELL VOLUME 104.6 fL CALC (80.0-100.0); MEAN CORPUSCULAR HGB 33.7 pG CALC (26.0-32.0); MEAN CORPUSCULAR HGB CONC 32.2 g/dL CAL (32.0-36.0); RED BLOOD COUNT 3.03 mill/uL (4.70-6.10); RED CELL DISTRI WIDTH 14.7 % (11.5-15.5)
[2021-04-21 05:54] LABS: MAGNESIUM 1.9 mg/dL (1.6-2.3)
[2021-04-21 06:01] LABS: ANION GAP 11 (6-22 (CALC)); BUN 34 mg/dL (8-23); BUN/CREATININE RATIO 26 (12-20 (CALC)); CARBON DIOXIDE 21 mmol/l (22-30); CHLORIDE 108 mmol/l (95-108); CREATININE 1.3 mg/dL (0.7-1.3); GFR 53 ML/MIN (>=60 (CALC)); GFR FOR AFR.AMER. > 60 ML/MIN (>=60 (CALC)); POTASSIUM 3.8 mmol/l (3.5-5.1); SODIUM 136 mmol/l (137-146)
--- NOTE | 2021-04-21 06:33 | NUR ---
PT'S BLOOD SUGAR WAS 67 @0630 GAVE CRANBERRY JUICE WITH SUGAR.
--- NOTE | 2021-04-21 06:39 | NUR ---
PATIENT HAS BEEN SINUS NAZIA MOST OF NIGHT WITH TIMES SUSTAINING IN THE HIGH 30S. UPON ASSESSMENT OF PATIENT EACH TIME, PATIENT STATES HE FEELS FINE, NO PAIN, NO SOB, NO EXTREME FATIGUE.
--- NOTE | 2021-04-21 07:00 | NUR ---
RECIEVED REPORT FROM BUTCH NUÑEZ
[2021-04-21 07:44] VITALS: BP 130/67
--- NOTE | 2021-04-21 07:44 | NUR ---
PT RESTING IN SEMI FOWLERS POSITION. PT IS A/O X2 WITH CONFUSION. ASSESSMENT AND VITALS COMPLETED. BP 130/67, HR 47, O2 98% ON ROOM AIR. RESPIRATIONS ARE EVEN AND UNLABORED ON ROOM AIR. LUNG SOUNDS ARE CLEAR. HEART RHYTHM NORMAL WITH TELE IN PLACE, SB PER ER MONITORING. BOWEL SOUNDS ARE ACTIVE. #22G ARUN INFUSING WITH IVF PER ORDER, SITE REMAINS HEALTHY AND PATENT. SKIN INTACT. 1+ EDEMA NOTED TO BLE. PULSES STRONG. PT DENIES OF ANY PAINS OR DISCOMFORTS AT THIS TIME. ALL SAFETY PRECAUTIONS ARE IN PLACE WITH CALL LIGHT IN REACH.BED AND CHAIR ALARM ACTIVE. WILL CONTINUE TO MONITOR.
--- NOTE | 2021-04-21 10:19 | NUR ---
DR ESTES AND JEFF,ANLILIANE AT BEDSIDE
[2021-04-21 10:45] VITALS: BP 110/54
--- NOTE | 2021-04-21 12:03 | NUR ---
PT SLEEPING IN SEMI FOWLERS POSITION. REPSIRATIONS ARE EVEN AND UNLABORED WITH NO DISTRESS NOTED. TELE MONITORING IN PLACE. NO SIGNS OF ANY PAINS OR DISCOMFORTS. ALL SAFETY PRECAUTIONS ARE IN PLACE WITH CALL LIGHT IN REACH. WILL CONTINUE TO MONITOR.
--- NOTE | 2021-04-21 13:44 | NUR ---
PT EDUCATED ON DC INSTRUCTIONS AND CONTINUING OF HOME MEDICATIONS. PT VERBLAIZED UNDERSTANDING. YVAN CALLED AND INFORMED. BOTH VERBALZIED UNDERSTANDING. IV RMOEVED WITH CATH STILL INTACT. TELE REMOVED, ER NOTIFIED. TRANSPORTATION CALLED. CLOTHES SOILED. GOWN TO BE PROVIDED. WILL CONTINUE TO MONITOR
--- NOTE | 2021-04-21 13:49 | NUR ---
Discharge instructions given. Patient verbalizes understanding of same. Discharged in stable condition via Wheelchair to Home with staff. All belongings sent with pt. PT DC HOME WITH [facility] VIA WHEELCHAIR ACCOMPAINED BY [facility] STAFF IN STABLE CONDITION WITH ALL PERSONAL BELONGINGS AND DC INSTRUCTIONS.
--- NOTE | 2021-04-23 08:34 | NUR ---
prelim blood cx shows gram positive cocci in 1/4, likely contaminant. reported to patricia. no new orders. will f/u with final
== END 2021-04-21 13:50 | disposition home or self-care (01) ==
LOC: ED 03:00 → ED-I 04:42 → ED 05:01 → ICU 05:02 → MS2 05:02 → ICU 05:49 → MS2 16:42
PROVIDERS: Emergency Medicine; ADMIT Hospitalist; ATTEND Hospitalist
DX: E86.0 Dehydration (principal); N17.9 Acute kidney failure, unspecified; E87.1 Hypo-osmolality and hyponatremia; N39.0 Urinary tract infection, site not specified; M62.82 Rhabdomyolysis; E87.5 Hyperkalemia; E87.8 Other disorders of electrolyte and fluid balance, not elsewhere classified; I10 Essential (primary) hypertension; F03.90 Unspecified dementia, unspecified severity, without behavioral disturbance, psychotic disturbance, mood disturbance, and anxiety; Z86.718 Personal history of other venous thrombosis and embolism; Z79.01 Long term (current) use of anticoagulants; Z86.711 Personal history of pulmonary embolism; Z20.822 Contact with and (suspected) exposure to COVID-19